=== PATIENT | female | born 1975 | race Caucasian/White ===

== ENCOUNTER 2017-02-13 18:23 | Emergency (ER) | payer OTHER ==
[2017-02-13 18:32] VITALS: BP 138/70; PULSE 97; TEMP 98.3; BMI 34.7
--- NOTE | 2017-02-13 19:42 | PDOC ---
History of Present Illness - General Chief Complaint: Rash Stated Complaint: RASH Time Seen by Provider: 02/13/17 19:18 History Source: Portal Developer Used ([id number] ) Exam Limitations: Language Barrier - History of Present Illness Initial Comments: 02/13/17 19:36 41 yr female with itchy rash 10-12 days constant getting worse. Pt denies fever , no recent travel. Timing/Duration: reports: constant Severity: Yes: moderate Location: reports: generalized Past History - Past Medical History Allergies/Adverse Reactions: Allergies Allergy/AdvReac Type Severity Reaction Status Date / Time morphine Allergy Verified 02/13/17 18:29 Home Medications: Ambulatory Orders Cholecalciferol (Vitamin D3) [Vitamin D3 -] 1,000 unit PO DAILY 05/18/16 Vitamin E 1,000 unit PO DAILY 05/18/16 Hydroxyzine HCl [Atarax -] 25 mg PO TID #21 tablet 02/13/17 Permethrin 5% Topical Cream [Elimite -] 1 applic TP ONCE #2 tube 02/13/17 Hypercholesterolemia: Yes Kidney Stones: Yes (lithotripsy) Suicide Attempt (Hx): No - Surgical History Abdominal Surgery: No Orthopedic Surgery: Yes - Immunization History Immunization Up to Date: Yes - Psycho/Social/Smoking Cessation Hx Anxiety: Yes Suicidal Ideation: No Smoking Status: No Smoking History: Never smoked Have you smoked in the past 12 months: No Number of Cigarettes Smoked Daily: 0 Information on smoking cessation initiated: No Hx Alcohol Use: No Drug/Substance Use Hx: No Substance Use Type: None Review of Systems - Review of Systems Able to Perform ROS?: Yes Is the patient limited Macedonian proficient: Yes Constitutional: No: Symptoms Reported HEENTM: No: Symptoms Reported Respiratory: No: Symptoms reported Cardiac (ROS): No: Symptoms Reported ABD/GI: No: Symptoms Reported : No: Symptoms Reported Musculoskeletal: No: Symptoms Reported Integumentary: Yes: Symptoms Reported, See HPI, Rash *Physical Exam - Vital Signs Last Vital Signs Temp Pulse Resp BP Pulse Ox 98.3 F 97 H 18 138/70 100 02/13/17 18:29 02/13/17 18:29 02/13/17 18:29 02/13/17 18:29 02/13/17 18:29 - Physical Exam General Appearance: Yes: Nourished, Appropriately Dressed HEENT: positive: EOMI, PRIYANKA Neck: positive: Supple. negative: Lymphadenopathy (R), Lymphadenopathy (L) Respiratory/Chest: positive: Lungs Clear, Normal Breath Sounds Cardiovascular: positive: Regular Rhythm, Regular Rate Extremity: positive: Normal Capillary Refill, Normal Inspection, Normal Range of Motion Integumentary: positive: Rash (arms, neck behind ears, legs, waistline, under breasts with multiple erythematous papules ) Neurologic: positive: Fully Oriented, Alert, Normal Mood/Affect, Normal Response , Motor Strength 12/09 Medical Decision Making - Medical Decision Making 02/13/17 19:48 cc: itchy rash for 10 days worse at night not relieved with benadryl 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 , mix the clothes pt has not had any exposure to shelters, motels pt lives alone with dog will treat for scabies will refer to derm pt understands the dc plan discussed via swatch folder [id number] *DC/Admit/Observation/Transfer Diagnosis at time of Disposition: Scabies - Discharge Dispostion Disposition: HOME Condition at time of disposition: Good - Prescriptions Prescriptions: Hydroxyzine HCl [Atarax -] 25 mg PO TID #21 tablet Permethrin 5% Topical Cream [Elimite -] 1 applic TP ONCE #2 tube - Patient Instructions Additional Instructions: follow with the semiconductor development technician for follow up use the medication as prescribed wash all sheets, towels, clothing used in the past 3 days in hot water.
== END 2017-02-13 20:00 | disposition home or self-care (01) ==
LOC: JERFT 18:23
DX: B86 Scabies (principal)
CPT/HCPCS: 99281-25

== ENCOUNTER 2017-03-10 23:41 | Emergency (ER) | payer OTHER ==
[2017-03-10 23:52] VITALS: BP 121/84; PULSE 86; TEMP 98; BMI 34.7
== END 2017-03-11 01:10 | disposition left against medical advice (07) ==
LOC: JER 23:41
DX: Z53.21 Procedure and treatment not carried out due to patient leaving prior to being seen by health care provider (principal)
CPT/HCPCS: 99281-25

== ENCOUNTER 2017-06-21 18:04 | Emergency (ER) | payer OTHER ==
--- NOTE | 2017-06-21 18:09 | PDOC ---
Rapid Medical Evaluation Chief Complaint: Respiratory Medical Evaluation: Allergies Allergy/AdvReac Type Severity Reaction Status Date / Time morphine Allergy Verified 03/10/17 23:49 06/21/17 18:08 I have performed a brief in-person evaluation of this patient. The patient presents with a chief complaint of: SOB w/ numbness/swelling and pain to R side of face/head. H/o HLD, fatty liver and renal stones Pertinent physical exam findings:Stable w/ clear chest/lungs and non-focal on exam I have ordered the following:ekg The patient will proceed to the ED for further evaluation. 06/21/17 18:12 06/21/17 18:13
[2017-06-21 18:12] VITALS: BP 128/78; PULSE 85; TEMP 99; BMI 34.9
--- NOTE | 2017-06-22 11:08 | EKG ---
Test Reason : Blood Pressure : / mmHG Vent. Rate : 084 BPM Atrial Rate : 084 BPM P-R Int : 146 ms QRS Dur : 076 ms QT Int : 362 ms P-R-T Axes : 047 040 024 degrees QTc Int : 427 ms NORMAL SINUS RHYTHM CANNOT RULE OUT INFERIOR INFARCT , AGE UNDETERMINED ABNORMAL ECG NO PREVIOUS ECGS AVAILABLE Confirmed by ALEX GOLDBERG MD ([id number]) on 06/22/2017 11:08:24 AM Referred By: Confirmed By:ALEX GOLDBERG MD
== END 2017-06-21 21:50 | disposition left against medical advice (07) ==
LOC: JER 18:04
DX: Z53.21 Procedure and treatment not carried out due to patient leaving prior to being seen by health care provider (principal)
CPT/HCPCS: 93005; 93010; 99281-25

== ENCOUNTER 2017-12-05 08:37 | Emergency (ER) | payer OTHER ==
[2017-12-05 08:42] VITALS: BP 132/67; PULSE 77; TEMP 98.4; BMI 34.7
--- NOTE | 2017-12-05 08:56 | PDOC ---
History of Present Illness - General Chief Complaint: Back Pain Stated Complaint: BACK PAIN Time Seen by Provider: 12/05/17 08:46 History Source: Patient Exam Limitations: No Limitations - History of Present Illness Initial Comments: 12/05/17 09:13 For evaluation of significant back pain. States his left side and now radiating through buttocks down the back of leg. Denies knowledge of injury, no exercise change, is uncertain as to cause and has never had this kind of pain before. Has taken 1 Naprosyn with no resolved. Feet, denies fevers, denies dysuria constipation or any vaginal problems. Last normal menstrual cycle was last week Occurred: reports: yesterday Severity: reports: mild, moderate Pain Location: reports: back Method of Injury: Yes: unknown Modifying Factors: improves with: None Associated Symptoms (Fall): denies symptoms Past History - Travel Traveled outside of the country in the last 30 days: No Close contact w/someone who was outside of country & ill: No - Past Medical History Allergies/Adverse Reactions: Allergies Allergy/AdvReac Type Severity Reaction Status Date / Time morphine Allergy Verified 12/05/17 08:38 Home Medications: Ambulatory Orders Cholecalciferol (Vitamin D3) [Vitamin D3 -] 1,000 unit PO DAILY 05/18/16 Vitamin E 1,000 unit PO DAILY 05/18/16 Permethrin 5% Topical Cream [Elimite -] 1 applic TP ONCE #2 tube 02/13/17 hydrOXYzine HCL [Atarax -] 25 mg PO TID #21 tablet 02/13/17 Cyclobenzaprine HCl 10 mg PO Q8H PRN #14 tablet 12/05/17 Naproxen [Naprosyn -] 500 mg PO BID #14 tablet 12/05/17 COPD: No GI Disorders: Yes (Fatty liver) Hypercholesterolemia: Yes Kidney Stones: Yes (lithotripsy) - Surgical History Abdominal Surgery: No GI Surgery: Yes (FOR KIDNEY STONES) Orthopedic Surgery: Yes - Immunization History Immunization Up to Date: Yes - Suicide/Smoking/Psychosocial Hx Smoking Status: No Smoking History: Never smoked Have you smoked in the past 12 months: No Number of Cigarettes Smoked Daily: 0 Hx Alcohol Use: No Drug/Substance Use Hx: No Substance Use Type: None Trauma Specific PMHX - Complaint Specific PMHX Back Injury: Yes Review of Systems - Review of Systems Able to Perform ROS?: Yes Is the patient limited Uzbek proficient: Yes Constitutional: Yes: Symptoms Reported, See HPI, Malaise. No: Chills, Fever HEENTM: Yes: See HPI. No: Symptoms Reported Respiratory: No: Symptoms reported Musculoskeletal: Yes: Symptoms Reported, See HPI, Back Pain, Muscle Pain Neurological: No: Symptoms reported All Other Systems: Reviewed and Negative *Physical Exam - Vital Signs Last Vital Signs Temp Pulse Resp BP Pulse Ox 98.4 F 77 19 132/67 99 12/05/17 08:38 12/05/17 08:38 12/05/17 08:38 12/05/17 08:38 12/05/17 08:38 - Physical Exam General Appearance: Yes: Nourished, Appropriately Dressed, Apparent Distress, Mild Distress, Moderate Distress HEENT: positive: PRIYANKA, Normal ENT Inspection, TMs Normal, Pharynx Normal Neck: negative: Tender Respiratory/Chest: positive: Lungs Clear Gastrointestinal/Abdominal: positive: Soft. negative: Tender Musculoskeletal: positive: Normal Inspection, Decreased Range of Motion ( possible spasm noted to the paravertebral spinous muscles on the left side, no bone tenderness crepitus or step-offs. Range of motion is limited secondary to this pain. This radiates down sciatic distribution of left leg. Neurovascular intact to foot), Muscle Spasm Extremity: positive: Normal Range of Motion, Tender Integumentary: positive: Normal Color, Dry, Warm Neurologic: positive: retail sales associate seasonal II-XII NML intact, Fully Oriented, Alert, Normal Mood/ Affect, Normal Response, Motor Strength 5/5 Progress Note - Progress Note Progress Note: Urine negative for infection or evidence of kidney stone. We'll treat with back spasm with NSAIDs and cyclobenzaprine *DC/Admit/Observation/Transfer Diagnosis at time of Disposition: Low back strain Qualifiers: Encounter type: initial encounter Qualified Code(s): S39.012A - Strain of muscle, fascia and tendon of lower back, initial encounter - Discharge Dispostion Disposition: HOME Condition at time of disposition: Stable Admit: No - Referrals - Patient Instructions Printed Discharge Instructions: DI for Back Strain or Sprain Additional Instructions: Rest, no heavy lifting or exercise until pain is resolved Hot soaks to neck and low back as often as possible/hot showers or Jacuzzis No massage or therapy until spasm is gone Continue Naprosyn 500 mg tablet, 1 tablet every 8 hours for the next 3 days then as needed for pain and swelling Cyclobenzaprine 1-10mg every 8 hours as needed for spasm If not significant improvement within 24 hours with medication and rest regime, followup with private physician for change in medications and /or therapy. - Post Discharge Activity Forms/Work/School Notes: Back to Work
[2017-12-05] MEDS ORDERED: KETOROLAC TROMETHAMINE 60 MG/2 ML VIAL IM ONE (09:13)
[2017-12-05] MEDS ORDERED: KETOROLAC TROMETHAMINE 60 MG/2 ML VIAL ONE (09:15)
[2017-12-05 09:18] LABS: URINE APPEARANCE SLCLOUDY; URINE BILIRUBIN NEGATIVE (<2.0 mg/dL); URINE BLOOD 1+ (NEGATIVE); URINE COLOR LTYELLOW; URINE GLUCOSE (UA) NEGATIVE (NEGATIVE); URINE KETONE NEGATIVE (NEGATIVE); URINE LEUK ESTERASE NEGATIVE (NEGATIVE); URINE NITRITE NEGATIVE (NEGATIVE); URINE PROTEIN NEGATIVE (NEGATIVE); URINE UROBILINOGEN NEGATIVE mg/dL (0.2-1.0)
[2017-12-05 09:20] LABS: HCG,QUALITATIVE URINE Negative
[2017-12-05 09:30] LABS: EPI CELLS RARE /HPF (FEW); URINE BACTERIA RARE /hpf (NONE SEEN); URINE MUCUS RARE
== END 2017-12-05 09:36 | disposition home or self-care (01) ==
LOC: JERFT 08:37
PROC: 3E0233Z Introduction of Anti-inflammatory into Muscle, Percutaneous Approach (ICD-10-PCS; principal; 2017-12-05)
DX: S39.012A Strain of muscle, fascia and tendon of lower back, initial encounter (principal); X58.XXXA Exposure to other specified factors, initial encounter; Y93.89 Activity, other specified; Y92.9 Unspecified place or not applicable; E78.00 Pure hypercholesterolemia, unspecified; K76.0 Fatty (change of) liver, not elsewhere classified
CPT/HCPCS: 81003; 81015; 84703; 96372; 99281-25

== ENCOUNTER 2018-07-07 10:59 | Emergency (ER) | payer OTHER ==
[2018-07-07 11:07] VITALS: BP 120/72; PULSE 72; TEMP 98.7; BMI 35.6
[2018-07-07] MEDS ORDERED: IBUPROFEN 600 MG TABLET (FP) PO ONE (12:22)
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
[2018-07-07] MEDS ORDERED: ACETAMINOPHEN 325 MG TABLET (FP) PO ONE (12:37)
[2018-07-07 12:56] LABS: BASO % 0.9 % (0-2.0); EOS % 2.8 % (0-4.5); HEMOGLOBIN 13.2 GM/dL (10.7-15.3); LYMPH % 24.5 % (8-40); MCH 29.3 pg (25.7-33.7); MCHC 34.8 g/dl (32.0-36.0); MEAN CELL VOLUME 84.2 fl (80-96); MEAN PLT VOLUME 8.4 fl (7.5-11.1); NEUT % 64.8 % (42.8-82.8); PLATELET COUNT 253 K/MM3 (134-434); RBC 4.52 M/mm3 (3.60-5.2); RDW 13.4 % (11.6-15.6); WHITE BLOOD COUNT 7.2 K/mm3 (4.0-10.0)
[2018-07-07 12:56] LABS: URINE APPEARANCE CLEAR; URINE BILIRUBIN NEGATIVE (<2.0 mg/dL); URINE COLOR YELLOW; URINE GLUCOSE (UA) NEGATIVE (NEGATIVE); URINE KETONE NEGATIVE (NEGATIVE); URINE LEUK ESTERASE NEGATIVE (NEGATIVE); URINE NITRITE NEGATIVE (NEGATIVE); URINE PROTEIN NEGATIVE (NEGATIVE); URINE UROBILINOGEN 4.0 E.U/dl mg/dL (0.2-1.0)
[2018-07-07 13:16] LABS: ALBUMIN 3.9 g/dl (3.4-5.0); ALK PHOS 100 U/L (45-117); ANION GAP 7 MMOL/L (8-16); BILIRUBIN,TOTAL 0.3 mg/dL (0.2-1); BLOOD UREA NITROGEN 12 mg/dL (7-18); CALCIUM 8.2 mg/dL (8.5-10.1); CHLORIDE 107 mmol/L (98-107); CO2 27 mmol/L (21-32); CREATININE 0.6 mg/dL (0.55-1.3); GLUCOSE,RANDOM 82 mg/dL (74-106); POTASSIUM 3.9 mmol/L (3.5-5.1); SGOT/AST 19 U/L (15-37); SGPT/ALT 28 U/L (13-61); SODIUM 141 mmol/L (136-145); TOT PROT 7.1 g/dl (6.4-8.2)
[2018-07-07] MEDS ORDERED: MECLIZINE HCL 25 MG TABLET (FP) PO ONE (13:19)
--- NOTE | 2018-07-07 13:19 | PDOC ---
Attending Attestation - Resident Resident Name: Macario Tena - ED Attending Attestation I have performed the following: I have examined & evaluated the patient, The case was reviewed & discussed with the resident, I agree w/resident's findings & plan - HPI HPI: 07/07/18 13:52 Ms. Marya Duarte is a 42 year old female with past medical history significant for HLD, kidney stones s/p lithotripsy fatty liver presents to the emergency department with 3 days of dizziness /vertigo sx and localized bilateral temporal headache. The patient described the headache as mild in quality, that s associated with subjective blurry vision. The patient reports taking aleve for the pain. Denies any changes to vision or neurological deficit. Allergies: Morphine PCP: Skylar Marquez MD [facility] interpretation as documented for information - Physicial Exam PE: 07/07/18 13:53 NAD, well appearing, PERRL, EOMI, MMM, nl conjunctiva, anicteric; neck supple. lungs clear, RRR, abdomen soft nontender. RYAN x4, no focal neuro deficits. No peripheral edema. normal color for ethnicity, WWP. Alert, oriented appropriately. CN II-XII grossly intact. Strength prox and distally 5/5 throughout. Sensation grossly intact to light touch. RYAN x4. Gait stable. Speech clear. - Medical Decision Making 07/07/18 13:54 See HPI for details Vital signs reviewed, wnl. Prior notes reviewed, including admissions, discharges and consultations. laboratory results and imaging reviewed, basic labs and lytes wnl, negative UA, urobilinogen present, but prior liver disease and normal LFTs here. No abdominal sx EKG normal sinus rhythm, no interval abnormalities, narrow QRS, ST and T wave segments and morphology normal. Nonspecific T wave abnormalities ED course: given analgesia, with improvement. Meclizine trial>ativan for s/s suggestive of peripheral vertigo, no focal deficits and gait stable. will reassess Dispo: pt eloped prior to ativan administration, unable to find in department. 07/07/18 14:59 07/07/18 15:19 Heart Score/ECG Review - ECG Impressions Normal ECG: Yes Comment:: 07/07/18 14:22 EKG normal sinus rhythm, no interval abnormalities, narrow QRS, ST and T wave segments and morphology normal. Nonspecific T wave abnormalities
[2018-07-07] MEDS ORDERED: ACETAMINOPHEN 325 MG TABLET (FP) ONE (13:29)
[2018-07-07] MEDS ORDERED: MECLIZINE HCL 25 MG TABLET (FP) ONE (13:29)
[2018-07-07] MEDS ORDERED: LORazepam 1 MG TABLET PO ONE (14:26)
[2018-07-07] MEDS ORDERED: LORazepam 0.5 MG TABLET ONE (14:54)
--- NOTE | 2018-07-07 17:06 | EKG ---
Test Reason : Blood Pressure : / mmHG Vent. Rate : 065 BPM Atrial Rate : 065 BPM P-R Int : 148 ms QRS Dur : 074 ms QT Int : 406 ms P-R-T Axes : 059 038 034 degrees QTc Int : 422 ms NORMAL SINUS RHYTHM NORMAL ECG WHEN COMPARED WITH ECG OF 21-JUN-2017 19:15, NO SIGNIFICANT CHANGE WAS FOUND Confirmed by MD JERO, GERALDINE ([id number]) on 07/07/2018 5:05:50 PM Referred By: Confirmed By:GERALDINE NOGUEIRA MD
== END 2018-07-07 15:04 | disposition left against medical advice (07) ==
LOC: JER 10:59
DX: R51 Headache (principal); R42 Dizziness and giddiness; H53.8 Other visual disturbances
CPT/HCPCS: 36415; 80053; 81003; 84703; 85025; 93005; 93010; 99282-25

== ENCOUNTER 2018-07-08 20:28 | Emergency (ER) | payer OTHER ==
[2018-07-08 20:37] VITALS: BMI 35.6
--- NOTE | 2018-07-08 21:09 | PDOC ---
History of Present Illness - General Chief Complaint: Lightheaded Stated Complaint: DIZZINESS Time Seen by Provider: 07/08/18 21:09 - History of Present Illness Initial Comments: 07/08/18 23:12 42f with pmh of HLD and kidney stones, who presents to the emergency department with lightheadedness, right sided facial tingling and mild headache. She was here in the ED yesterday for dizziness and facial tingling but eloped before end of care. She was given meclizine and tylenol with little relief. The patient denies chest pain, shortness of breath, headache. The patient denies fever, chills, nausea, vomit, diarrhea and constipation. The patient denies dysuria, frequency, urgency and hematuria. 07/08/18 23:19 Past History - Past Medical History Allergies/Adverse Reactions: Allergies Allergy/AdvReac Type Severity Reaction Status Date / Time morphine Allergy Verified 07/08/18 20:34 Home Medications: Ambulatory Orders Meclizine HCl [Antivert -] 25 mg PO QID #28 tablet 07/08/18 COPD: No GI Disorders: Yes (Fatty liver) Hypercholesterolemia: Yes Kidney Stones: Yes (lithotripsy) - Surgical History Abdominal Surgery: No GI Surgery: Yes (FOR KIDNEY STONES) Orthopedic Surgery: Yes - Immunization History Immunization Up to Date: Yes - Suicide/Smoking/Psychosocial Hx Smoking Status: No Smoking History: Never smoked Have you smoked in the past 12 months: No Number of Cigarettes Smoked Daily: 0 Hx Alcohol Use: No Drug/Substance Use Hx: No Substance Use Type: None Review of Systems - Review of Systems Able to Perform ROS?: Yes Is the patient limited Mongolian proficient: No Constitutional: No: Symptoms Reported HEENTM: No: Symptoms Reported Respiratory: No: Symptoms reported Cardiac (ROS): No: Symptoms Reported ABD/GI: No: Symptoms Reported : No: Symptoms Reported Neurological: Yes: Numbness, Tingling, Dizziness *Physical Exam - Vital Signs Last Vital Signs Temp Pulse Resp BP Pulse Ox 98.5 F 76 18 135/72 100 07/08/18 20:35 07/08/18 20:35 07/08/18 20:35 07/08/18 20:35 07/08/18 20:35 - Physical Exam General Appearance: Yes: Nourished, Appropriately Dressed. No: Apparent Distress HEENT: positive: EOMI, PRIYANKA, Normal ENT Inspection Respiratory/Chest: positive: Lungs Clear, Normal Breath Sounds. negative: Chest Tender, Respiratory Distress Cardiovascular: positive: Regular Rhythm, Regular Rate, S1, S2 Gastrointestinal/Abdominal: positive: Normal Bowel Sounds, Flat, Soft. negative : Tender Musculoskeletal: positive: Normal Inspection. negative: CVA Tenderness Extremity: positive: Normal Capillary Refill, Normal Inspection, Normal Range of Motion Integumentary: positive: Normal Color, Warm Neurologic: positive: Fully Oriented, Alert, Normal Mood/Affect, Normal Response , Motor Strength 5/5 Moderate Sedation - Procedure Monitoring Vital Signs: Procedure Monitoring Vital Signs Temperature 98.5 F 07/08/18 20:35 Pulse Rate 76 07/08/18 20:35 Respiratory Rate 18 07/08/18 20:35 Blood Pressure 135/72 07/08/18 20:35 O2 Sat by Pulse Oximetry (%) 100 07/08/18 20:35 *DC/Admit/Observation/Transfer - Prescriptions Prescriptions: Meclizine HCl [Antivert -] 25 mg PO QID #28 tablet - Referrals - Patient Instructions - Post Discharge Activity
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
[2018-07-08] MEDS ORDERED: MECLIZINE HCL 25 MG TABLET (FP) PO ONE (22:54)
[2018-07-08] MEDS ORDERED: MECLIZINE HCL 25 MG TABLET (FP) ONE (23:35)
[2018-07-08 23:46] VITALS: BP 126/72; PULSE 77; TEMP 97.8
== END 2018-07-08 23:45 | disposition home or self-care (01) ==
LOC: JER 20:28
DX: R42 Dizziness and giddiness (principal); E78.5 Hyperlipidemia, unspecified; Z87.442 Personal history of urinary calculi
CPT/HCPCS: 70450-TC; 99281-25

== ENCOUNTER 2018-11-14 11:25 | Emergency (ER) | payer OTHER ==
[2018-11-14 11:35] VITALS: BP 105/71; PULSE 93; TEMP 99.6; BMI 35.4
--- NOTE | 2018-11-14 12:22 | PDOC ---
History of Present Illness - General Chief Complaint: Cold Symptoms Stated Complaint: FEVER/COUGH Time Seen by Provider: 11/14/18 11:52 - History of Present Illness Initial Comments: 11/14/18 12:20 42-year-old female without comorbidities presents for evaluation of flulike symptoms and sore throat 3 days. 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 Past History - Past Medical History Allergies/Adverse Reactions: Allergies Allergy/AdvReac Type Severity Reaction Status Date / Time morphine Allergy Verified 11/14/18 12:14 Home Medications: Ambulatory Orders Meclizine HCl [Antivert -] 25 mg PO QID #28 tablet 07/08/18 COPD: No GI Disorders: Yes (Fatty liver) Hypercholesterolemia: Yes Kidney Stones: Yes (lithotripsy) - Surgical History Abdominal Surgery: No GI Surgery: Yes (FOR KIDNEY STONES) Orthopedic Surgery: Yes - Immunization History Immunization Up to Date: Yes - Suicide/Smoking/Psychosocial Hx Smoking Status: No Smoking History: Never smoked Have you smoked in the past 12 months: No Number of Cigarettes Smoked Daily: 0 Information on smoking cessation initiated: No Hx Alcohol Use: No Drug/Substance Use Hx: No Substance Use Type: None Review of Systems - Review of Systems Constitutional: Yes: Fever HEENTM: Yes: Nose Congestion, Throat Pain Respiratory: Yes: Cough *Physical Exam - Vital Signs Last Vital Signs Temp Pulse Resp BP Pulse Ox 99.6 F 93 H 18 105/71 99 11/14/18 11:34 11/14/18 11:34 11/14/18 11:34 11/14/18 11:34 11/14/18 11:34 - Physical Exam Comments: 11/14/18 12:21 HEAD: NC/AT EYES: Conjuntiva clear Ears: Canals and TM's normal NOSE: No d/c THROAT: Moist mucous membrances, oral pharanx clear, uvula midline NECK: Supple without adenopathy CARDIAC: S1 S2 LUNGS: CTA Full and Equal breath sounds ABDOMEN: Soft NT ND MS: Full ROM in all joints without edema NEUROLOGIC: No gross sensory or motor deficits, NVID SKIN: Normal color and temperature no lesions or rashes Medical Decision Making - Medical Decision Making 11/14/18 12:53 Flu and strep are negative. This is an upper respiratory infection. I will have patient follow-up with PCP. No treatment necessary at this time. *DC/Admit/Observation/Transfer Diagnosis at time of Disposition: Viral upper respiratory infection - Discharge Dispostion Disposition: HOME Condition at time of disposition: Stable Decision to Admit order: No - Referrals Referrals: Radames To MD [Primary Care Provider] - - Patient Instructions Printed Discharge Instructions: DI for Viral Upper Respiratory Infection -- Adult Additional Instructions: Tylenol Motrin for fever. Return to the emergency room for worsening symptoms. Follow-up with primary care physician for clearance to go back to work when 24 hours without fever off of Tylenol and Motrin. - Post Discharge Activity Forms/Work/School Notes: Back to Work
[2018-11-14] MEDS ORDERED: ACETAMINOPHEN 500 MG TABLET (FP) PO ONE (12:28)
[2018-11-14] MEDS ORDERED: ACETAMINOPHEN 500 MG TABLET (FP) ONE (12:35)
== END 2018-11-14 13:04 | disposition home or self-care (01) ==
LOC: JERFT 11:25
DX: J06.9 Acute upper respiratory infection, unspecified (principal); K76.0 Fatty (change of) liver, not elsewhere classified; E78.00 Pure hypercholesterolemia, unspecified
CPT/HCPCS: 87070; 87804; 87880; 99281-25

== ENCOUNTER 2021-07-23 09:04 | Emergency (ER) | payer OTHER ==
[2021-07-23 09:12] VITALS: BP 110/75; PULSE 74; TEMP 98.1; BMI 34.0
== END 2021-07-23 10:00 | disposition home or self-care (01) ==
LOC: JER 09:04
DX: Z48.02 Encounter for removal of sutures (principal)
CPT/HCPCS: 99281-25

== ENCOUNTER 2021-11-15 18:57 | Emergency (ER) | payer OTHER ==
[2021-11-15 19:25] VITALS: BP 114/77; PULSE 90; TEMP 98.9; BMI 35.3
[2021-11-15] MEDS ORDERED: diazePAM 5 MG TABLET PO ONE (22:11)
[2021-11-15] MEDS ORDERED: ACETAMINOPHEN 1000 MG/100 ML BAG IVPB ONE (22:12)
[2021-11-15] MEDS ORDERED: LACTATED RINGERS SOLUTION 1000 ML INFUS.BAG IV ONE (22:12)
[2021-11-15] MEDS ORDERED: METOCLOPRAMIDE HCL INJECTION 10 MG/2 ML VIAL IVPB ONE (22:12)
[2021-11-15] MEDS ORDERED: LIDOCAINE 5% TOPICAL PATCH TP ONE (22:17)
[2021-11-15] MEDS ORDERED: ACETAMINOPHEN INJECTION 100 ML IVPB ONE (22:26)
[2021-11-15] MEDS ORDERED: diazePAM 5 MG TABLET ONE (22:26)
[2021-11-15] MEDS ORDERED: METOCLOPRAMIDE HCL INJECTION 10 MG/2 ML VIAL ONE ×2 (22:26→22:32)
[2021-11-15] MEDS ORDERED: LIDOCAINE 5% TOPICAL PATCH ONE (22:27)
[2021-11-15 22:35] LABS: BASO % 0.7 % (0-2.0); EOS % 2.4 % (0-4.5); HEMATOCRIT 42.5 % (32.4-45.2); HEMOGLOBIN 14.6 GM/dL (10.7-15.3); MCH 29.2 pg (25.7-33.7); MCHC 34.4 g/dl (32.0-36.0); MEAN CELL VOLUME 84.9 fl (80-96); MONO % 5.4 % (3.8-10.2); NEUT % 59.5 % (42.8-82.8); PLATELET COUNT 233 10^3/uL (134-434); RDW 13.1 % (11.6-15.6); WHITE BLOOD COUNT 9.5 K/mm3 (4.0-10.0)
[2021-11-15 23:01] LABS: CALCIUM 9.3 mg/dL (8.5-10.1)
[2021-11-15 23:02] LABS: ALBUMIN 3.8 g/dl (3.4-5.0); BLOOD UREA NITROGEN 13.1 mg/dL (7-18); MAGNESIUM 2.4 mg/dL (1.8-2.4)
[2021-11-15 23:05] LABS: CREATININE 0.6 mg/dL (0.55-1.3)
[2021-11-15 23:06] LABS: BILIRUBIN,TOTAL 0.4 mg/dL (0.2-1); TOT PROT 7.6 g/dl (6.4-8.2)
[2021-11-16] MEDS ORDERED: LIDOCAINE PATCH REMOVAL MC SCH (10:00)
== END 2021-11-16 00:08 | disposition home or self-care (01) ==
LOC: JER 18:57
PROC: 3E0333Z Introduction of Anti-inflammatory into Peripheral Vein, Percutaneous Approach (ICD-10-PCS; principal; 2021-11-15)
PROC: 3E033GC Introduction of Other Therapeutic Substance into Peripheral Vein, Percutaneous Approach (ICD-10-PCS; 2021-11-15)
DX: R51.9 Headache, unspecified (principal)
CPT/HCPCS: 36415; 71045-TC-FY; 80053; 83690; 83735; 84436; 84443; 84481; 84484; 84703; 85025; 93005; 93010; 99285-25

== ENCOUNTER 2022-01-20 04:24 | Day surgery (SDC) | payer OTHER ==
[2022-01-20 09:30] VITALS: BMI 31.8
[2022-01-20 10:54] VITALS: TEMP 98
[2022-01-20 11:40] VITALS: BP 126/74; PULSE 76
== END 2022-01-20 11:29 | disposition home or self-care (01) ==
LOC: JASU-ENDO 04:24
PROVIDERS: ATTEND Internal Medicine Gastroenterology
PROC: 0DJD8ZZ Inspection of Lower Intestinal Tract, Via Natural or Artificial Opening Endoscopic (ICD-10-PCS; principal; 2022-01-20 10:00)
DX: Z12.11 Encounter for screening for malignant neoplasm of colon (principal)
CPT/HCPCS: 88305-TC; 88342-TC

== ENCOUNTER → 2022-09-07 | Day surgery (SDC) | payer OTHER | END | disposition home or self-care (01) | LOC: JRADUS-SUR 08:35 | PROVIDERS: ATTEND Family Medicine | PROC: 07B63ZX Excision of Left Axillary Lymphatic, Percutaneous Approach, Diagnostic (ICD-10-PCS; principal; 2022-09-07) | DX: R59.0 Localized enlarged lymph nodes (principal) | CPT/HCPCS: 19083; 87899; 88305-TC; 88342-TC; A4648 ==

== ENCOUNTER 2022-09-11 07:31 | Emergency (ER) | payer OTHER ==
[2022-09-11 07:43] VITALS: BP 133/79; PULSE 121; RESP 18; TEMP 100.7; BMI 34.9
[2022-09-11] MEDS ORDERED: KETOROLAC TROMETHAMINE 30 MG/1 ML VIAL IM ONE (07:54)
[2022-09-11] MEDS ORDERED: KETOROLAC TROMETHAMINE 30 MG/1 ML VIAL ONE (07:56)
[2022-09-11 08:49] LABS: THROAT:GRP A STREP DETECTED (NOTDETECTED)
== END 2022-09-11 08:45 | disposition home or self-care (01) ==
LOC: JER 07:31 → JERFT 07:31
PROC: 3E0233Z Introduction of Anti-inflammatory into Muscle, Percutaneous Approach (ICD-10-PCS; principal; 2022-09-11)
DX: R50.9 Fever, unspecified (principal); J02.0 Streptococcal pharyngitis; R05.1 Acute cough
CPT/HCPCS: 0241U-QW; 87651; 99284-25

== ENCOUNTER 2022-10-03 10:04 | Emergency (ER) | payer OTHER ==
[2022-10-03 10:42] VITALS: BP 123/65; PULSE 93; RESP 18; TEMP 98.5; BMI 34.9
[2022-10-03] MEDS ORDERED: DEXAMETHASONE SOD PHOSPHATE 10 MG/1 ML VIAL PO ONE (11:57)
[2022-10-03] MEDS ORDERED: DEXAMETHASONE SOD PHOSPHATE 10 MG/1 ML VIAL ONE (12:00)
[2022-10-03 13:10] LABS: THROAT:GRP A STREP DETECTED (NOTDETECTED)
== END 2022-10-03 12:03 | disposition home or self-care (01) ==
LOC: JERFT 10:04
DX: J02.0 Streptococcal pharyngitis (principal)
CPT/HCPCS: 0241U-QW; 87651; 99283-25; J1100

== ENCOUNTER 2024-02-28 11:09 | Emergency (ER) | payer OTHER ==
[2024-02-28 11:18] VITALS: BP 124/86; PULSE 71; RESP 20; TEMP 97.6; BMI 32.1
[2024-02-28] MEDS ORDERED: ONDANSETRON 4 MG/2 ML VIAL ONE (12:41)
[2024-02-28] MEDS ORDERED: FAMOTIDINE 20 MG/50 ML IVPB 20 MG/50 ML MG IVPB ONE (12:42)
[2024-02-28] MEDS: SODIUM CHLORIDE 0.9% 500 ML INFUS.BAG IV ONE (12:45)
[2024-02-28] MEDS: FAMOTIDINE 20 MG/50 ML IVPB 20 MG/50 ML MG IVPB ONE (12:50)
[2024-02-28] MEDS: ONDANSETRON 4 MG/2 ML VIAL IVPUSH ONE (12:50)
[2024-02-28 13:07] LABS: PH,URINE 5.5 (5.0-8.0); URINE APPEARANCE CLEAR; URINE BILIRUBIN NEGATIVE (NEGATIVE); URINE COLOR YELLOW; URINE GLUCOSE (UA) NEGATIVE (NEGATIVE); URINE KETONE TRACE (NEGATIVE); URINE LEUK ESTERASE NEGATIVE (NEGATIVE); URINE NITRITE NEGATIVE (NEGATIVE); URINE PROTEIN NEGATIVE (NEGATIVE); URINE UROBILINOGEN 0.2 mg/dL (0.2-1.0)
[2024-02-28 13:10] LABS: EOS % 2.7 % (0-4.5); HEMATOCRIT 45.6 % (32.4-45.2); HEMOGLOBIN 15.7 GM/dL (10.7-15.3); LYMPH % 32.2 % (8-40); MCHC 34.4 g/dl (32.0-36.0); MEAN CELL VOLUME 84.1 fl (80-96); MEAN PLT VOLUME 9.2 fl (7.5-11.1); MONO % 6.3 % (3.8-10.2); NEUT % 57.8 % (42.8-82.8); PLATELET COUNT 257 10^3/uL (134-434); RBC 5.42 M/mm3 (3.60-5.2); WHITE BLOOD COUNT 5.8 K/mm3 (4.0-10.0)
[2024-02-28 13:10] LABS: HCG,QUALITATIVE URINE Negative
[2024-02-28 13:23] LABS: CALCIUM 9.3 mg/dL (8.5-10.1)
[2024-02-28 13:24] LABS: ALBUMIN 4.1 g/dl (3.4-5.0); BLOOD UREA NITROGEN 12.2 mg/dL (7-18)
[2024-02-28 13:27] LABS: CREATININE 0.6 mg/dL (0.55-1.3)
[2024-02-28 13:29] LABS: BILIRUBIN,TOTAL 0.5 mg/dL (0.2-1); TOT PROT 7.8 g/dl (6.4-8.2)
== END 2024-02-28 16:22 | disposition home or self-care (01) ==
LOC: JER 11:09
PROC: 3E033GC Introduction of Other Therapeutic Substance into Peripheral Vein, Percutaneous Approach (ICD-10-PCS; principal; 2024-02-28)
PROC: 3E033GC Introduction of Other Therapeutic Substance into Peripheral Vein, Percutaneous Approach (ICD-10-PCS; 2024-02-28)
DX: R10.84 Generalized abdominal pain (principal); R11.0 Nausea
CPT/HCPCS: 36415; 74177-TC; 76705-TC; 80053; 81003; 84703; 85025; 87086; 99285-25; Q9967